=== PATIENT | male | born 1980 ===

== ENCOUNTER 2018-04-23 14:23 | Emergency (ER) | payer MEDICAID, OTHER ==
[2018-04-23 14:31] VITALS: PULSE 112; TEMP 98
--- NOTE | 2018-04-23 15:01 | C.PDOC ---
History Of Present Illness Mr. Corcoran is a 37 year old male with no significant past medical history who presents with complaints of a laceration at the right superior periorbital region. Patient stated he was reaching up for something when a box of objects fell on him, including a marble. He controlled the bleeding using pressure with a towel than walked 2 [address] to the hospital. Associated symptoms include some mild lightheadedness. He denies any fever, vision changes, headache, chest pain, SOB, or abdominal pain. He denies any LOC. ROS: As stated above <Celina Hess - Last Filed: 04/23/18 16:21> <Celina Hess - Last Filed: 04/23/18 16:21> <Arturo Alexander - Last Filed: 04/25/18 01:23> Time Seen by Provider: 04/23/18 14:47 Chief Complaint (Nursing): Abnormal Skin Integrity Past Medical History Reviewed: Vital Signs Vital Signs: Last Vital Signs Temp 98 F 04/23/18 14:27 Pulse 112 H 04/23/18 14:27 Resp 18 04/23/18 14:27 BP 147/89 04/23/18 14:27 Pulse Ox 97 04/23/18 14:27 Family History: States: No Known Family Hx - Social History Hx Alcohol Use: Yes Hx Substance Use: No - Immunization History Hx Tetanus Toxoid Vaccination: Yes Hx Influenza Vaccination: Yes Hx Pneumococcal Vaccination: No <Celina Hess - Last Filed: 04/23/18 16:21> Vital Signs: Last Vital Signs Temp 98 F 04/23/18 14:27 Pulse 112 H 04/23/18 14:27 Resp 16 04/23/18 16:45 BP 135/85 04/23/18 16:45 Pulse Ox 98 04/23/18 16:45 <Arturo Alexander - Last Filed: 04/25/18 01:23> Review Of Systems Except As Marked, All Systems Reviewed And Found Negative. (As per HPI) <Celina Hess - Last Filed: 04/23/18 16:21> Physical Exam - Physical Exam Appears: Well, Non-toxic, No Acute Distress Skin: Other (.5cm laceration in superior periorbital region. ) Head: Laceration (.5cm laceration in superior periorbital region. ) Eye(s): bilateral: EOMI Ear(s): Left: Normal Nose: Normal Oral Mucosa: Moist Tongue: Normal Appearing Lips: Normal Appearing Throat: Normal Neck: Normal Cardiovascular: Rhythm Regular, No Edema, No Murmur, No JVD Respiratory: Normal Breath Sounds, No Accessory Muscle Use Gastrointestinal/Abdominal: Normal Exam, Soft, No Tenderness Neurological/Psych: Oriented x3, Normal Speech, Normal Cognition, Normal Motor, Normal Sensation Gait: Steady <Celina Hess - Last Filed: 04/23/18 16:21> ED Course And Treatment O2 Sat by Pulse Oximetry: 97 <Celina Hess - Last Filed: 04/23/18 16:21> Laceration - Laceration Repair No standard instances Wound Length (In cm): .5cm Description Of Wound: Linear Wound Cleansed With: Sterile Saline Wound Examination: Irrigated With Saline, No FB With Wound Exploration Wound Closure: Steri Strips, Skin Glue Wound Complexity: Simple <Celina Hess - Last Filed: 04/23/18 16:21> Medical Decision Making Medical Decision Making: Facial Laceration Mgmt -Head CT - Reviewed. Negative for any intracranial abnormality. -Tetanus Shot ONCE -Wound care with dermabond and steristrip Dispo: Patient to follow up with [facility] clinic. <Celina Hess - Last Filed: 04/23/18 16:21> Disposition Counseled Patient/Family Regarding: Need For Followup - Disposition Disposition Time: 16:33 - POA Present On Arrival: None <Celina Hess - Last Filed: 04/23/18 16:21> <Arturo Alexander - Last Filed: 04/25/18 01:23> - Disposition Referrals: [facility] [Outside] Disposition: HOME/ ROUTINE Condition: STABLE Instructions: Laceration Repair With Glue (DC), Minor Head Injury (DC) Forms: [employer] (Turkmen) - Clinical Impression Clinical Impression: Facial laceration - PA / METEOROLOGICAL TECHNICIAN / Resident Statement MD/DO has examined the patient and agrees with the treatment plan. - Scribe Statement The provider has reviewed the documentation as recorded by the Scribe (37 yr old male presents after trauma to R face. CT unremarkable. Neuro exam unremarkable. Tetanus given. Wound clearned and glued.) <Arturo Alexander - Last Filed: 04/25/18 01:23>
[2018-04-23] MEDS ORDERED: Tdap Vaccine 0.5 ml Vial (10-64 yrs) IM ONE ×2 (15:25→16:16)
--- NOTE | 2018-04-23 16:13 | CT ---
Date of service: 04/23/2018 PROCEDURE: CT HEAD WITHOUT CONTRAST. HISTORY: head trauma COMPARISON: None available. TECHNIQUE: Axial computed tomography images were obtained through the head/brain without intravenous contrast. Radiation dose: Total exam DLP = 991.55 mGy-cm. This CT exam was performed using one or more of the following dose reduction techniques: Automated exposure control, adjustment of the mA and/or kV according to patient size, and/or use of iterative reconstruction technique. FINDINGS: HEMORRHAGE: No intracranial hemorrhage. BRAIN: No mass effect or edema. No atrophy or chronic microvascular ischemic changes.Please note that MRI with diffusion imaging is more sensitive in the detection of acute ischemic event. VENTRICLES: No hydrocephalus. CALVARIUM: Unremarkable. PARANASAL SINUSES: Unremarkable as visualized. No significant inflammatory changes. MASTOID AIR CELLS: Unremarkable as visualized. No inflammatory changes. OTHER FINDINGS: None. IMPRESSION: No acute intracranial pathology identified.
[2018-04-23 16:45] VITALS: BP 135/85; RESP 16; O2SAT 98
== END 2018-04-23 16:45 | disposition home or self-care (01) ==
LOC: C.ER 14:23
DX: S01.81XA Laceration without foreign body of other part of head, initial encounter (principal); W22.8XXA Striking against or struck by other objects, initial encounter